=== PATIENT | female | born 1990 | race Caucasian/White ===

== ENCOUNTER 2019-05-26 05:45 | Observation (INO) | payer OTHER ==
[~2019-05-26] VITALS: Ht 170.2 cm; Wt 75.7 kg
[2019-05-26] MEDS ORDERED: LABETALOL 200 MG TAB PO ONE (06:50)
[2019-05-26] MEDS ORDERED: LABETALOL 200 MG TAB ONE (07:07)
[2019-05-26 07:22] VITALS: BP 132/96
[2019-05-26] MEDS ORDERED: ACETAMINOPHEN 325 MG TAB PO PRN (08:30)
--- NOTE | 2019-05-26 08:40 | NUR ---
PATIENT HAS BEEN SCREENED AND CATEGORIZED LOW NUTRITION RISK. PATIENT WILL BE SEEN WITHIN 7 DAYS OF ADMISSION. 06/01/[address]
[2019-05-26] MEDS ORDERED: ACETAMINOPHEN 325 MG TAB ONE (09:12)
== END 2019-05-26 13:45 | disposition home or self-care (01) ==
LOC: MLD 05:45
PROVIDERS: ADMIT Obstetrics & Gynecology; ATTEND Obstetrics & Gynecology
DX: O26.893 Other specified pregnancy related conditions, third trimester (principal); R10.9 Unspecified abdominal pain; R51 Headache; Z3A.35 35 weeks gestation of pregnancy
CPT/HCPCS: G0378

== ENCOUNTER 2019-07-08 18:47 | Emergency (ER) | payer OTHER ==
[~2019-07-08] VITALS: Ht 170.2 cm; Wt 70.5 kg
[2019-07-08 18:51] VITALS: BP 144/103
--- NOTE | 2019-07-08 18:53 | NUR ---
AVIAN KEEPER AWARE OF PT ASTRID LEVEL. PT TO WAIT IN CHAIR FOR BED PLACEMENT.
--- NOTE | 2019-07-08 19:28 | NUR ---
to ed 02
--- NOTE | 2019-07-08 19:30 | NUR ---
DR. PERERA EVALUATING AT BEDSIDE.
--- NOTE | 2019-07-08 19:30 | NUR ---
29 YO F BIB SELF PRESENTS TO ED C/O 05/30 FRONTAL, PRESSURE LIKE SERRANO X 3 DAYS AND SUBJECTIVE FEVER STARTING TODAY. PT STATES SHE HAD VAGINAL DELIVERY X 2 WEEKS AGO; NORMAL DELIVERY. PT ALSO REPORTS SHE WAS DX WITH PREECLAMPSIA TOWARD THE END OF HER . PT DENIES TAKING DAILY RX FOR THIS; SHE STATES THEY ONLY GAVE HER MEDICATION ONE TIME. PT IS TACHYCARDIC AND HYPERTENSIVE IN TRIAGE. BP: 144/103. HR: 143. PT DENIES CP, SOB, N/V, BLURRY VISION. -- PT AWAKE, A/O X 4, CALM, COOPERATIVE. BEHAVIOR AGE APPROPRIATE. -- SKIN PINK, WARM, DRY. BREATHING EVEN, UNLABORED. PMH-- DENIES RX-- DENIES
[2019-07-08] MEDS ORDERED: NACL 0.9% 1,000 ML IV ONE (19:32)
[2019-07-08] MEDS ORDERED: KETOROLAC 30 MG/ML VIAL IVP ONE (19:35)
--- NOTE | 2019-07-08 19:45 | NUR ---
LABS DRAWN BY RN AT BEDSIDE.
--- NOTE | 2019-07-08 19:48 | NUR ---
PT TAKEN TO CT VIA WC.
[2019-07-08 19:58] LABS: BASOPHILS % (AUTO) 0.4 % (0.0-2.0); EOSINOPHILS # (AUTO) 0.1 K/uL (0-0.4); EOSINOPHILS % (AUTO) 0.7 % (0.0-4.0); HEMATOCRIT 41.1 % (36-48); HEMOGLOBIN 13.6 g/dL (12.0-16.0); LYMPHOCYTES # (AUTO) 0.8 K/uL (2.5-16.5); LYMPHOCYTES % (AUTO) 7.6 % (20.5-51.1); MEAN CORPUSCULAR HEMOGLOBIN 29 pg (27-31); MEAN CORPUSCULAR HGB CONC 33 g/dL (33-37); MEAN CORPUSCULAR VOLUME 86.7 fL (80-94); MONOCYTES # (AUTO) 0.4 K/uL (0.8-1.0); NEUTROPHILS # (AUTO) 9.8 K/uL (1.8-7.7); NEUTROPHILS % (AUTO) 87.3 % (42.2-75.2); PLATELET COUNT (AUTO) 367 K/uL (140-450); RED BLOOD CELL COUNT(AUTO) 4.74 MIL/uL (4.20-5.40); RED CELL DISTRIBUTION WIDTH 15.6 % (11.6-13.7); WHITE BLOOD COUNT (AUTO) 11.2 K/uL (4.8-10.8)
--- NOTE | 2019-07-08 20:02 | NUR ---
PT RETURNED FROM CT VIA WC.
[2019-07-08 20:06] LABS: APPEARANCE,URINE CLEAR (CLEAR); BILIRUBIN,URINE NEGATIVE (NEGATIVE); BLOOD, URINE 2+ (NEGATIVE); COLOR,URINE YELLOW (YELLOW); LEUKOCYTE ESTERASE ,URINE NEGATIVE (NEGATIVE); NITRITE, URINE NEGATIVE (NEGATIVE); UGLUCOSE NEGATIVE (NEGATIVE)
[2019-07-08 20:10] LABS: ANION GAP 12.1 (8-16); CARBON DIOXIDE 25.8 mmol/L (21-32); CREATININE 0.6 mg/dL (0.6-1.3); POTASSIUM 3.9 mmol/L (3.5-5.1)
--- NOTE | 2019-07-08 20:10 | NUR ---
MEDICATIONS ADMINISTERED ORDERED. RISKS/BENEFITS REVEIWED WITH PT. WILL CONTINUE TO MONITOR.
[2019-07-08 20:16] LABS: ALBUMIN 3.4 g/dL (3.4-5.0); TOTAL BILIRUBIN 0.4 mg/dL (0.0-1.0)
[2019-07-08 20:27] LABS: RBC,URINE 0-5 /HPF (0-5); WBC,URINE 0-5 /HPF (0-5)
--- NOTE | 2019-07-08 21:00 | NUR ---
PT RESTING COMFORTABLY IN BED WITH VSS. AROUSABLE TO VERBAL STIMULI. BOYFRIEND AT BEDSIDE. SKIN PINK, WARM, DRY. BREATHING EVEN, UNLABORED.
--- NOTE | 2019-07-08 21:30 | NUR ---
PT REPORTS NO PAIN. HR AND BP WNL. DR. PERERA MADE AWARE.
--- NOTE | 2019-07-08 22:00 | NUR ---
PT RESTING COMFORTABLY IN BED WITH VSS. AROUSABLE TO VERBAL STIMULI. BOYFRIEND AT BEDSIDE. SKIN PINK, WARM, DRY. BREATHING EVEN, UNLABORED.
[2019-07-08 23:23] VITALS: BP 127/75
--- NOTE | 2019-07-08 23:23 | NUR ---
Patient discharged with v/s stable. Written and verbal after care instructions given and explained. Patient alert, oriented and verbalized understanding of instructions. Ambulatory with steady gait. All questions addressed prior to discharge. ID band removed. Patient advised to follow up with PMD. Rx of Ibuprofen and Acetaminophen given. Patient educated on indication of medication including possible reaction and side effects. Opportunity to ask questions provided and answered.
== END 2019-07-08 23:23 | disposition home or self-care (01) ==
LOC: MED 18:47
DX: R51 Headache (principal); R50.9 Fever, unspecified
CPT/HCPCS: 36415; 70450; 71045; 80053; 81001; 83605; 83690; 85025; 87040; 87086; 96374; 99284; J1885; J7030

== ENCOUNTER 2020-01-31 18:53 | Emergency (ER) | payer OTHER ==
[~2020-01-31] VITALS: Ht 170.2 cm; Wt 69.9 kg
[2020-01-31 18:54] VITALS: BP 140/83
--- NOTE | 2020-01-31 18:57 | NUR ---
URINE CUP HANDED TO PT FOR SAMPLE
--- NOTE | 2020-01-31 19:03 | NUR ---
29 Y/O FEMALE C/O SORE/ITCHY THROAT AND CONGESTION X 4 DAYS WITH PAIN 8/10. RR EVEN AND UNLABORED. AIRWAY PATENT, PT ABLE TO SPEAK IN FULL SENTENCES. THROAT HAS MILD ERYTHEMA.. PT TOOK BENADRYL AT 3PM PT DENIES SOB/CP/COUGH/N/V/D/FEVER AT THIS TIME. PT STATES ALSO HAS CONSTANCT VAGINAL BURNING X 1 WEEK WITH WHITE DISCHARGE. PT DENIES ANY TRAUMA. PT STATES SHE IS . SKIN IS PINK/WARM/DRY; AAOX4 WITH EVEN AND STEADY GAIT; LUNGS CLEAR BL; HR EVEN AND REGULAR; PATIENT STATES PAIN OF 0/10 AT THIS TIME; VSS; PATIENT POSITIONED FOR COMFORT; HOB ELEVATED; BEDRAILS UP X1; BED DOWN AND LOCKED. MEDICAL HX: HTN/ANXIETY NKA
--- NOTE | 2020-01-31 19:57 | NUR ---
ERMD BEDSIDE EVALUATING PT
[2020-01-31 20:26] LABS: BILIRUBIN,URINE NEGATIVE (NEGATIVE); BLOOD, URINE NEGATIVE (NEGATIVE); COLOR,URINE YELLOW (YELLOW); LEUKOCYTE ESTERASE ,URINE 1+ (NEGATIVE); NITRITE, URINE NEGATIVE (NEGATIVE); UGLUCOSE NEGATIVE (NEGATIVE)
[2020-01-31 20:30] LABS: APPEARANCE,URINE HAZY (CLEAR)
[2020-01-31 20:37] LABS: RBC,URINE NONE SEEN /HPF (0-5); WBC,URINE 0-5 /HPF (0-5)
--- NOTE | 2020-01-31 20:51 | NUR ---
PT RESTING IN BED IN POSITION OF COMFORT, LIGHTS DIMMED.BED LOW AND LOCKED, 1 SIDERAIL UP. VSS. WILL CONTINUE TO MONITOR.
--- NOTE | 2020-01-31 21:48 | NUR ---
PT'S BOYFRIEND (MICKY) PHONED AND HIS CONTACT INFO IS [phone]
[2020-01-31 22:15] VITALS: BP 131/93
== END 2020-01-31 22:15 | disposition home or self-care (01) ==
LOC: MED 18:53
DX: J02.8 Acute pharyngitis due to other specified organisms (principal); B96.89 Other specified bacterial agents as the cause of diseases classified elsewhere; F41.9 Anxiety disorder, unspecified; I10 Essential (primary) hypertension
CPT/HCPCS: 36415; 76801; 81001; 81025; 84702; 86901; 87086; 99284; Q0092

== ENCOUNTER 2020-10-25 00:39 | Emergency (ER) | payer OTHER ==
[~2020-10-25] VITALS: Ht 170.2 cm; Wt 63.5 kg
--- NOTE | 2020-10-25 00:39 | NUR ---
PT KRISTINE DENSON, PREBOOK. TAKEN TO CHAIR D
[2020-10-25 01:00] VITALS: BP 142/87
--- NOTE | 2020-10-25 01:38 | NUR ---
Dr. Marino examining patient.
--- NOTE | 2020-10-25 01:50 | NUR ---
PATIENT BIB [employer]. PATIENT EXAMINED BY DR. MURRAY. PATIENT MEDICALLY CLEARED AND RELEASED IN CUSTODY IN STABLE CONDITION. ORIGINAL PRE-BOOK FORM GIVEN TO OFFICER ES, #[id number].
== END 2020-10-25 01:50 ==
LOC: MED 00:39
DX: O26.892 Other specified pregnancy related conditions, second trimester (principal); I10 Essential (primary) hypertension; Z02.89 Encounter for other administrative examinations
CPT/HCPCS: 99283

== ENCOUNTER 2023-07-01 01:05 | Emergency (ER) | payer OTHER ==
[~2023-07-01] VITALS: Ht 170.2 cm; Wt 81.2 kg
[2023-07-01 01:13] VITALS: BP 153/94; PULSE 112; RESP 18; TEMP 98.8; O2SAT 98
[2023-07-01 02:10] VITALS: BP 153/94; PULSE 112; RESP 18; TEMP 98.8; O2SAT 98
== END 2023-07-01 02:10 | disposition home or self-care (01) ==
LOC: MED 01:05
DX: J06.9 Acute upper respiratory infection, unspecified (principal); I10 Essential (primary) hypertension; F41.9 Anxiety disorder, unspecified; Z79.899 Other long term (current) drug therapy
CPT/HCPCS: 81002; 81025; 99282